=== PATIENT | male | born 1965 | race Caucasian/White ===

== ENCOUNTER 2017-08-13 19:49 | Emergency (ER) | payer OTHER ==
[~2017-08-13] VITALS: Ht 180.3 cm; Wt 68.0 kg
--- NOTE | ~2017-08-13 | EKG ---
[place] [address] [facility] [place] [address] ELECTROCARDIOGRAM REPORT Name: DAWSONVIJAY Room #: DEP [facility]#: [id number] Admission: 08/13/17 Attend Phys: Discharge: 08/13/17 Date of : 65 Report #: [id number] THIS REPORT FOR: //name// [facility] ED Test Date: 2017-08-13 Test Time: 21:09:44 Pat Name: VIJAY DAWSON Department: Room: Gender: M Typing Teacher: : 1965 Requested By: Rea Mendez Order Number: [id number] MD: Jackson Ocampo Measurements Intervals [place] Rate: 72 P: 39 MN: 164 QRS: -29 QRSD: 94 T: 68 QT: 374 QTc: 410 Interpretive Statements Sinus rhythm Borderline left axis deviation Abnormal R-wave progression, early transition Compared to ECG 01/15/2016 20:07:06 No significant change was found Electronically Signed On 08-14-2017 8:52:34 PEWTER CASTER by Jackson Ocampo [email or web address] <ELECTRONICALLY SIGNED> By: Jackson Ocampo MD, [facility] 08/14/17 0852 08 08 Jackson Ocampo MD, FAC /EPI
[~2017-08-13 19:49] MED LIST: DAILY MULTIPLE1 EACH PO; GILENYA0.5 MG PO; NORCO 5-325 TA1 EACH PO
[2017-08-13] MEDS ORDERED: LIORESAL 10 MG10 MG PO (20:20)
[2017-08-13 20:49] LABS: HEMOGLOBIN 13.3 gm/dL (14.0-18.0); MCH 30.9 pg (26.0-34.0); MCHC 34.9 g/dL (28.0-37.0); MCV 88.5 fL (80.0-100.0); PLATELET COUNT 169 thou/uL (150-400); RDW 13.3 % (10.5-14.5); WBC 4.7 thou/uL (4.0-11.0)
[2017-08-13 21:02] LABS: CALCIUM 8.9 mg/dL (8.5-10.1); POTASSIUM 3.8 mmol/L (3.5-5.1)
[2017-08-13 21:05] LABS: TOTAL BILIRUBIN 0.6 mg/dL (<0.1-1.0); TOTAL PROTEIN 6.7 g/dL (6.4-8.2)
[2017-08-13 21:10] LABS: ABSOLUTE NEUTROPHILS 3.4 thou/uL (1.4-8.2)
[2017-08-13 21:11] LABS: ANISOCYTOSIS 1+; POLYCHROMASIA OCCASIONAL
[2017-08-13] MEDS ORDERED: FLONASE 0.05%50 MCG NASAL (22:23)
== END 2017-08-13 22:37 | disposition home or self-care (01) ==
LOC: ER 19:49
PROVIDERS: Physician Assistant
DX: J06.9 Acute upper respiratory infection, unspecified (principal); G35 Multiple sclerosis